=== PATIENT | female | born 1950 | race Caucasian/White ===

== ENCOUNTER 2017-06-15 00:34 | Inpatient (IN) | payer OTHER, MEDICAID ==
[2017-06-15] MEDS ORDERED: NS 1,000 ML IV ONE (00:37)
[2017-06-15] MEDS ORDERED: PANTOPRAZOLE SODIUM 40 MG in NS 100 ML IV ONE (00:38)
--- NOTE | 2017-06-15 00:41 | EDPHY ---
H & P HPI/ROS: HPI CHIEF COMPLAINT: Bleeding per rectum HISTORY OF PRESENT ILLNESS: This patient is 67-year-old female she presents to the emergency room with melenic stools times 24 hours. Patient states that she had lower abdominal pain earlier. She denies fever. Denies vomiting. Upon arrival to the emergency room she has dark tarry stool present. She is hemodynamically stable. She denies being on any blood thinners. Past Medical History: Hypertension, hyperlipidemia, non ST elevation NH, aspiration pneumonia, toxic supra cardiomyopathy, hypoxic respiratory failure Past Surgical History: No recent surgery Social History: Lives at [facility] denies illicit drugs alcohol tobacco. Family History: Noncontributory ROS REVIEW OF SYSTEMS: A comprehensive 10 point review of systems is otherwise negative aside from elements mentioned in the history of present illness. Exam Constitutional appears nontoxic, obese, triage nursing summary reviewed, vital signs reviewed, awake/alert. Vital signs noted to be tachycardic and hypotensive. Heart rate 126. Blood pressure 90 systolic. Dark melonic foul- smelling stool at bedside. Eyes normal conjunctivae and sclera, EOMI, PERRLA. HENT normal inspection, atraumatic, moist mucus membranes, no epistaxis, neck supple/ no meningismus, no raccoon eyes. Respiratory clear to auscultation bilaterally, normal breath sounds, no respiratory distress, no wheezing. Cardiovascular rate normal, regular rhythm, no murmur, no edema, distal pulses normal. Gastrointestinal soft, non-tender, no rebound, no guarding, normal bowel sounds, no distension, no pulsatile mass. Genitourinary no CVA tenderness. Musculoskeletal no midline vertebral tenderness, full range of motion, no calf swelling, no tenderness of extremities, no meningismus, good pulses, neurovascularly intact. Skin pink, warm, & dry, no rash, skin atraumatic. Neurologic awake, alert and oriented x 3, AAOx3, moves all 4 extremities equally, motor intact, sensory intact, CN II-XII intact, normal cerebellar, normal vision, normal speech. Psychiatric normal mood/affect. Heme/Lymph/Immune no lymphadenopathy. Differential Diagnosis: Includes but is not limited to acute GI bleed, upper GI bleed, melenic stools, blood loss anemia, upper GI bleed, lower GI bleed Medical Decision Making: Plan for this patient 2 large-bore IVs, type and screen, IV Protonix bolus, IV Protonix drip, check H&H level. Plan for admission for acute GI bleed. Re-evaluation: 0106: Patient noted be tachycardic in the 120s. Blood pressure 90 systolic. Lactic acid is elevated at 4.7 indicating shock. Patient has 2 large-bore IVs. She will be vigorously hydrated and resuscitated. H&H are reviewed 9.8. Will type and screen and crossmatch for blood. Will admit to the ICU. 0115Am: Dr. Bloom. Recommends NPO, PPI. Close monitor in the ICU. Call if worsening of condition. 0116AM: Spoke with Dr. Castorena agrees to admit this patient. Reason for admission GI bleed. 0116: Blood pressure was low when she arrived 90 systolic. Heart rate 120s. This is improved with IV fluids. Heart rate 98. Blood pressure up to 112 systolic. 0138AM: Vital signs are improved. GI aware. Hospitalist service admission. Patient and CT scan at at this time. Dr. Darren Gramajo to follow up CT scan. Still admit to ICU. Rule out Perforated Ulcer. Of note abdomen is soft there is no guarding or peritoneal signs. Critical Care: Total Critical Care Time Spent Managing this Patient: 65 Minutes. This time was spent Exclusively with this patient. This Care was exclusive of procedures. The Organ System/life at risk was Acute GIB This Patient was in Critical Condition because Gastro-intestinal bleed. Source: Patient, EMS - Medical/Surgical History Hx Asthma: No Hx Chronic Respiratory Disease: No Hx Diabetes: No Hx Cardiac Disease: No Hx Renal Disease: No Hx Cirrhosis: No Hx Alcoholism: No Hx HIV/AIDS: No Hx Splenectomy or Spleen Trauma: No Other PMH: Encephalopathy, UTIs, Schizoaffective disorder, bipolar, Depression, chronic pain, hyperlipidemia, hypothyroid, GERD, HTN, TIA, Cerebral infarction without residual deficeit., bilateral knee replacements. R knee post op infection. - Social History Smoking Status: Former smoker Constitutional: Initial Vital Signs Temperature (C) 36.7 C 06/15/17 00:35 Heart Rate 125 H 06/15/17 00:35 Respiratory Rate 18 06/15/17 00:35 Blood Pressure 97/71 L 06/15/17 00:35 O2 Sat (%) 97 06/15/17 00:35 O2 Delivery Mode Nasal Cannula O2 (L/minute) 3 Allergies/Adverse Reactions: morphine Allergy (Verified 06/15/17 00:54) Home Medications: Medication Instructions Recorded Acetaminophen [Tylenol 325mg (*)] 650 mg PO TID 11/21/15 Atorvastatin Calcium [Lipitor 40 40 mg PO HS 11/21/15 mg (*)] Benzocaine/Menthol 14/12 [Cepacol 1 each MM PRN PRN 11/21/15 Lozenge] Cholecalciferol Vit D3 [Vitamin D3 1,000 units PO DAILY 11/21/15 (*)] Clopidogrel Bisulfate [Plavix (*)] 75 mg PO DAILY 11/21/15 Diclofenac Sodium 1% [Voltaren Gel 1 gretta TP QID 11/21/15 (*)] Docusate Sodium [Colace 100 MG (*)] 100 mg PO BID 11/21/15 Magnesium Oxide [Magnesium Oxide 400 mg PO DAILY 11/21/15 400 mg (*)] Meclizine HCl [Meclizine HCl 25 mg 25 mg PO BID PRN 11/21/15 (RX,OTC)] PARoxetine HCL [Paxil 20mg (*)] 60 mg PO DAILY 11/21/15 Polyethylene Glycol 3350 [Miralax 17 gm PO DAILY PRN 11/21/15 17 gm (*)] Potassium Cl [Klor-Con 20 meq (*)] 40 meq PO DAILY 11/21/15 Sennosides [Senokot] 1 tab PO BID 11/21/15 Triamterene/Hctz 37.5/25 1 tab PO DAILY 11/21/15 [Maxzide-25 (*)] oxyCODONE IR [Oxycodone Ir (*)] 5 mg PO Q8 PRN 11/21/15 Albuterol [Proventil Neb] 3 ml IH Q4 PRN #0 deyvial 11/25/15 Aspirin [Aspirin 81mg (*)] 81 mg PO DAILY #0 tab 11/25/15 Ondansetron Odt [Zofran Odt 4 mg 4 mg PO Q4 PRN #0 tab 11/25/15 (*)] Calcium Carbonate [Oyster Shell 1,000 mg PO DAILY 06/15/17 Calcium 500 mg (*)] Cetirizine [ZyrTEC 10 mg (*)] 10 mg PO DAILY PRN 06/15/17 Chlorhexidine Gluconate [Hibiclens 15 ml TP BID 06/15/17 (*)] Divalproex [Depakote Sprinkle 125 125 mg PO BID 06/15/17 MG (*)] Fluticasone/Vilanterol [Breo 1 each IH DAILY 06/15/17 Ellipta 100-25 Mcg INH] Hydrocodone/Acetaminophen [[place] 1 each PO Q6 PRN 06/15/17 5/325 (*)] Levothyroxine [Synthroid 112 mcg 112 mcg PO DAILY06 06/15/17 (*)] Pantoprazole Sodium [Protonix] 20 mg PO DAILY 06/15/17 Medical Decision Making - Data Points Laboratory Results: Laboratory Results 06/15/17 00:45 06/15/17 00:45 Medications Given: Acetaminophen (Tylenol) 650 mg PO Q4HRS PRN PRN Reason: Pain, Mild Stop: 12/14/17 09:16 Last Admin: 06/17/17 17:51 Dose: 650 mg Atorvastatin Calcium (Lipitor) 40 mg PO HS KIM Stop: 12/12/17 20:59 Last Admin: 06/17/17 20:21 Dose: 40 mg Calcium Carbonate (Oyster Shell Calcium) 1,000 mg PO DAILY KIM Stop: 12/13/17 08:59 Last Admin: 06/17/17 09:14 Dose: 1,000 mg Chlorhexidine Gluconate (Hibiclens) 0.1271 btl TP BID KIM Stop: 07/15/17 20:59 Last Admin: 06/17/17 19:50 Dose: Not Given Cholecalciferol (Vitamin D) 1,000 units PO DAILY KIM Stop: 12/13/17 08:59 Last Admin: 06/17/17 09:14 Dose: 1,000 units Clopidogrel Bisulfate (Plavix) 75 mg PO DAILY KIM Stop: 12/14/17 11:14 Last Admin: 06/17/17 15:43 Dose: 75 mg Divalproex Sodium (Depakote Sprinkle) 125 mg PO BID KIM Stop: 12/12/17 11:14 Last Admin: 06/17/17 20:21 Dose: 125 mg Hydromorphone HCl (Dilaudid) 0.2 mg IVP Q8H PRN PRN Reason: Pain, Severe Unable to Take PO Stop: 06/26/17 10:18 Last Admin: 06/16/17 10:27 Dose: 0.2 mg Pantoprazole Sodium 40 mg/ (Sodium Chloride) 100 mls @ 200 mls/hr IV BID KIM Stop: 12/12/17 08:59 Last Admin: 06/17/17 20:20 Dose: 100 mls Potassium Chloride/Sodium Chloride (Ns W/ 20 Kcl/L) 1,000 mls @ 75 mls/hr IV CONT KIM Stop: 12/12/17 16:59 Last Admin: 06/17/17 20:21 Dose: 1,000 mls Potassium Chloride (Potassium Cl 20 Meq (Premix)) 100 mls @ 50 mls/hr IV Q2H KIM Stop: 06/17/17 23:59 Last Admin: 06/17/17 21:57 Dose: 100 mls Levothyroxine Sodium (Synthroid) 112 mcg PO DAILY06 [facility] Stop: 12/12/17 11:14 Last Admin: 06/17/17 05:11 Dose: 112 mcg Miscellaneous Medication (Fluticasone/Vilanterol [Breo Ellipta 100-25 Mcg Inh]) 1 each IH DAILY KIM Stop: 12/13/17 08:59 Last Admin: 06/17/17 08:22 Dose: Not Given Oxycodone HCl (Oxycodone Ir) 5 mg PO Q8 PRN PRN Reason: Pain, Severe Able to Take PO Stop: 06/25/17 11:07 Last Admin: 06/17/17 15:41 Dose: 5 mg Paroxetine HCl (Paxil) 60 mg PO DAILY KIM Stop: 12/12/17 11:14 Last Admin: 06/17/17 09:14 Dose: 60 mg Discontinued Medications Sodium Chloride (Ns) 1,000 mls @ 0 mls/hr IV EDNOW ONE; Wide Open PRN Reason: Protocol Stop: 06/15/17 00:38 Last Admin: 06/15/17 01:00 Dose: 1,000 mls Pantoprazole Sodium 40 mg/ (Sodium Chloride) 100 mls @ 200 mls/hr IV ONCE ONE Stop: 06/15/17 01:07 Last Admin: 06/15/17 01:25 Dose: 100 mls Pantoprazole Sodium 80 mg/ (Sodium Chloride) 100 mls @ 10 mls/hr IV EDNOW ONE Stop: 06/15/17 11:14 Last Admin: 06/15/17 02:48 Dose: 100 mls Sodium Chloride (Ns) 1,000 mls @ 150 mls/hr IV CONT KIM Stop: 12/12/17 01:59 Last Admin: 06/15/17 11:04 Dose: 1,000 mls Potassium Chloride (Potassium Cl 10 Meq (Premix)) 100 mls @ 100 mls/hr IV Q1H KIM Stop: 06/15/17 09:29 Last Admin: 06/15/17 11:01 Dose: 100 mls Potassium Chloride (Potassium Cl 10 Meq (Premix)) 100 mls @ 100 mls/hr IV Q1H KIM Stop: 06/15/17 19:22 Last Admin: 06/15/17 19:01 Dose: 100 mls Potassium Chloride (Potassium Cl 10 Meq (Premix)) 100 mls @ 100 mls/hr IV Q1H KIM Stop: 06/16/17 11:14 Last Admin: 06/16/17 14:41 Dose: Not Given Potassium Chloride (Potassium Cl 10 Meq (Premix)) 100 mls @ 100 mls/hr IV ONCE ONE Stop: 06/16/17 15:44 Last Admin: 06/16/17 14:41 Dose: 100 mls Influenza Virus Vaccine Quadrival (Fluarix Quad [id number]) 0.5 ml IM .ONCE ONE Stop: 06/15/17 12:12 Last Admin: 06/15/17 14:58 Dose: 0.5 ml Polyethylene Glycol/Electrolytes (Gavilyte - G) 4,000 ml PO ONCE ONE Stop: 06/15/17 09:08 Last Admin: 06/15/17 16:12 Dose: 4,000 ml Potassium Chloride (Klor-Con) 10 - 40 meq PO ONCE ONE PRN Reason: Protocol Stop: 06/17/17 09:23 Last Admin: 06/17/17 11:14 Dose: 20 meq Departure - Departure Disposition: [facility] Inpatient Acute Clinical Impression: Gastrointestinal bleed Qualifiers: GI bleed type/associated pathology: unspecified gastrointestinal hemorrhage type Qualified Code(s): K92.2 - Gastrointestinal hemorrhage, unspecified Condition: Critical
[2017-06-15] MEDS ORDERED: PANTOPRAZOLE SODIUM 80 MG in NS 100 ML IV SCH (00:45)
--- NOTE | 2017-06-15 01:02 | CPEKG ---
Heart Rate: 118 RR Interval: 508 P-R Interval: 164 QRSD Interval: 82 QT Interval: 340 QTC Interval: 477 P [place]: 60 QRS [place]: -48 T Wave [place]: 132 EKG Severity - ABNORMAL ECG - EKG Impression: SINUS TACHYCARDIA EKG Impression: LAD, CONSIDER LEFT ANTERIOR FASCICULAR BLOCK EKG Impression: PROBABLE LVH WITH SECONDARY REPOL ABNRM EKG Impression: CONSIDER ANTERIOR INFARCT Electronically Signed By: Bay Chery 20-Jun-2017 11:58:02
[2017-06-15 01:03] LABS: % IMMATURE GRANULYOCYTES 0.3 % (0.0-1.1); ABSOLUTE IMMATURE GRANULOCYTES 0.04 10^3/uL (0.00-0.10); ADD DIFF? NO; ADD MORPH? NO; ADD SCAN? NO; ATYPICAL LYMPHOCYTE FLAG 0 (0-99); FRAGMENT RBC FLAG 0 (0-99); HEMOGLOBIN 9.8 g/dL (12.6-16.3); LEFT SHIFT FLG 0 (0-99); LIPEMIA HEMOLYSIS FLAG 80 (0-99); MEAN CELL HEMOGLOBIN 30.5 pg (27.9-34.1); MEAN CELL HEMOGLOBIN CONCENTR. 32.7 g/dL (32.4-36.7); MEAN CELL VOLUME 93.5 fL (81.5-99.8); MEAN PLATELET VOLUME 10.4 fL (8.7-11.7); PLATELET CLUMPS FLAG 0 (0-99); PLATELET COUNT 319 10^3/uL (150-400); RED BLOOD CELL COUNT 3.21 10^6/uL (4.18-5.33); RED CELL DISTRIBUTION WIDTH 12.8 % (11.5-15.2)
[2017-06-15 01:10] LABS: INR 1.11 (0.83-1.16); PROTIME(PATIENT) 14.2 SEC (12.0-15.0)
[2017-06-15 01:11] LABS: APTT 23.4 SEC (23.0-38.0)
[2017-06-15 01:12] LABS: ALANINE AMINOTRANSFERASE 33 IU/L (9-52); ALBUMIN 3.1 g/dL (3.5-5.0); ALKALINE PHOSPHATASE 58 IU/L (38-126); ANION GAP 13 mEq/L (8-16); ASPARTATE AMINOTRANSFERASE 16 IU/L (14-46); BILIRUBIN,TOTAL 0.3 mg/dL (0.1-1.4); BILIRUBIN-CONJUGATED 0.3 mg/dL (0.0-0.5); CARBON DIOXIDE 23 mEq/l (22-31); CHLORIDE 106 mEq/L (97-110); CREATININE 0.7 mg/dL (0.6-1.0); GLOMERULAR FILTRATION RATE > 60; GLUCOSE 181 mg/dL (70-100); POTASSIUM 3.9 mEq/L (3.5-5.2); SODIUM 142 mEq/L (134-144); TOTAL PROTEIN 5.8 g/dL (6.3-8.2)
[2017-06-15] MEDS ORDERED: PANTOPRAZOLE SODIUM 80 MG in NS 100 ML IV ONE (01:15)
[2017-06-15] MEDS ORDERED: IOPAMIDOL (ISOVUE-300) 100 ML BTL ONE (01:24)
--- NOTE | 2017-06-15 01:36 | PDGENHP ---
History and Physical - Chief Complaint Melena - History of Present Illness 67 yo F w/ hx of CAD, HTN, and CVA presents with melena. Patient sent from [facility], where she lives due to disability from a CVA, with one day of melanic stools. She also experienced some mild lower abdominal pain. Of note, she is on DAPT as an outpatient but not on therapeutic anticoagulation. In the ED she was tachycardic on arrival with SBP in the 90s and significant melena. Her BP and heart rate improved with IVF. History Information - Allergies/Home Medication List Allergies/Adverse Reactions: morphine Allergy (Verified 06/15/17 00:54) Home Medications: ARIPiprazole [Abilify 2 mg (*)] 2 mg PO BID 11/21/15 [Last Taken 11/21/15 09:00] Acetaminophen [Tylenol 325mg (*)] 650 mg PO TID 11/21/15 [Last Taken 11/21/15 09 :00] Atorvastatin Calcium [Lipitor 40 mg (*)] 80 mg PO HS 11/21/15 [Last Taken ] Benzocaine/Menthol 15/ [Cepacol Lozenge] 1 each MM PRN PRN 11/21/15 [Last Taken Unknown] Calcium Carbonate 1,200 mg PO DAILY 11/21/15 [Last Taken 11/21/15 09:00] Cholecalciferol Vit D3 [Vitamin D3 (*)] 1,000 units PO DAILY 11/21/15 [Last Taken 11/21/15 09:00] Clopidogrel Bisulfate [Plavix (*)] 75 mg PO DAILY 11/21/15 [Last Taken 11/21/15 09:00] Diclofenac Sodium 1% [Voltaren Gel (*)] 1 gretta TP QID 11/21/15 [Last Taken 12:00] Docusate Sodium [Colace 100 MG (*)] 100 mg PO BID 11/21/15 [Last Taken 11/21/15 09:00] Levothyroxine [Synthroid 100 mcg (*)] 100 mcg PO DAILY06 11/21/15 [Last Taken 09:00] Magnesium Oxide [Magnesium Oxide 400 mg (*)] 400 mg PO DAILY 11/21/15 [Last Taken 11/21/15 09:00] Meclizine HCl [Meclizine HCl 25 mg (RX,OTC)] 25 mg PO BID PRN 11/21/15 [Last Taken Unknown] Memantine HCl [Namenda 10 mg] 10 mg PO DAILY 11/21/15 [Last Taken 11/21/15 09:00 ] Ondansetron Odt [Zofran Odt 4 mg (*)] 4 mg PO Q6 PRN 11/21/15 [Last Taken Unknown] PARoxetine HCL [Paxil 20mg (*)] 60 mg PO DAILY 11/21/15 [Last Taken 11/21/15 09: 00] Polyethylene Glycol 3350 [Miralax 17 gm (*)] 17 gm PO BID 11/21/15 [Last Taken 11/21/15 09:00] Potassium Cl [Klor-Con 20 meq (*)] 40 meq PO DAILY 11/21/15 [Last Taken 09:00] Ranitidine HCl [Zantac] 150 mg PO BID 11/21/15 [Last Taken 11/21/15 09:00] Sennosides [Senokot] 1 tab PO BID 11/21/15 [Last Taken 11/21/15 09:00] Triamterene/Hctz 37.5/25 [Maxzide-25 (*)] 1 tab PO DAILY 11/21/15 [Last Taken 09:00] Valproic Acid [Depakene 250MG (*)] 250 mg PO BID 11/21/15 [Last Taken 11/21/15 09:00] oxyCODONE IR [Oxycodone Ir (*)] 5 mg PO Q12 PRN 11/21/15 [Last Taken Unknown] I have personally reviewed and updated: family history, medical history - Past Medical History coronary artery disease, CVA, hypertension - Family History Positive for: cancer - Social History Smoking Status: Former smoker Additional social history: Lives at [facility] due to disability from CVA Review of Systems Review of Systems: ROS: 10pt was reviewed & negative except for what was stated in HPI & below Physical Exam Physical Exam: Temp Pulse Resp BP Pulse Ox 36.7 C 98 14 112/72 95 06/15/17 00:35 06/15/17 01:09 06/15/17 01:09 06/15/17 01:09 06/15/17 01:09 Constitutional: no apparent distress, appears nourished Eyes: PERRL, anicteric sclera Ears, Nose, Mouth, Throat: moist mucous membranes, no oral mucosal ulcers Cardiovascular: regular rate and rhythym, no murmur, rub, or gallop Respiratory: no respiratory distress, no rales or rhonchi Gastrointestinal: normoactive bowel sounds, soft, non-tender abdomen Skin: warm, normal color Musculoskeletal: other (Leg weakness L>R.), No full muscle strength (Mild left facial, LUE weakness) Neurologic: AAOx3, weakness Psychiatric: interacting appropriately, not anxious Lab Data & Imaging Review 06/15/17 00:45 06/15/17 00:45 WBC 11.73 10^3/uL (3.80-9.50) H 06/15/17 00:45 RBC 3.21 10^6/uL (4.18-5.33) L 06/15/17 00:45 Hgb 9.8 g/dL (12.6-16.3) L 06/15/17 00:45 Hct 30.0 % (38.0-47.0) L 06/15/17 00:45 MCV 93.5 fL (81.5-99.8) 06/15/17 00:45 MCH 30.5 pg (27.9-34.1) 06/15/17 00:45 MCHC 32.7 g/dL (32.4-36.7) 06/15/17 00:45 RDW 12.8 % (11.5-15.2) 06/15/17 00:45 Plt Count 319 10^3/uL (150-400) 06/15/17 00:45 MPV 10.4 fL (8.7-11.7) 06/15/17 00:45 Neut % (Auto) 70.4 % (39.3-74.2) 06/15/17 00:45 Lymph % (Auto) 23.4 % (15.0-45.0) 06/15/17 00:45 [place] % (Auto) 5.3 % (4.5-13.0) 06/15/17 00:45 Eos % (Auto) 0.3 % (0.6-7.6) L 06/15/17 00:45 Baso % (Auto) 0.3 % (0.3-1.7) 06/15/17 00:45 Nucleat RBC Rel Count 0.0 % (0.0-0.2) 06/15/17 00:45 Absolute Neuts (auto) 8.25 10^3/uL (1.70-6.50) H 06/15/17 00:45 Absolute Lymphs (auto) 2.75 10^3/uL (1.00-3.00) 06/15/17 00:45 Absolute Monos (auto) 0.62 10^3/uL (0.30-0.80) 06/15/17 00:45 Absolute Eos (auto) 0.03 10^3/uL (0.03-0.40) 06/15/17 00:45 Absolute Basos (auto) 0.04 10^3/uL (0.02-0.10) 06/15/17 00:45 Absolute Nucleated RBC 0.00 10^3/uL (0-0.01) 06/15/17 00:45 Immature Gran % 0.3 % (0.0-1.1) 06/15/17 00:45 Immature Gran # 0.04 10^3/uL (0.00-0.10) 06/15/17 00:45 PT 14.2 SEC (12.0-15.0) 06/15/17 00:45 INR 1.11 (0.83-1.16) 06/15/17 00:45 APTT 23.4 SEC (23.0-38.0) 06/15/17 00:45 VBG Lactic Acid 4.7 mmol/L (0.7-2.1) H 06/15/17 00:45 Sodium 142 mEq/L (134-144) 06/15/17 00:45 Potassium 3.9 mEq/L (3.5-5.2) 06/15/17 00:45 Chloride 106 mEq/L (97-110) 06/15/17 00:45 Carbon Dioxide 23 mEq/l (22-31) 06/15/17 00:45 Anion Gap 13 mEq/L (8-16) 06/15/17 00:45 BUN 55 mg/dL (7-23) H 06/15/17 00:45 Creatinine 0.7 mg/dL (0.6-1.0) 06/15/17 00:45 Estimated GFR > 60 06/15/17 00:45 Glucose 181 mg/dL (70-100) H 06/15/17 00:45 Calcium 9.0 mg/dL (8.5-10.4) 06/15/17 00:45 Total Bilirubin 0.3 mg/dL (0.1-1.4) 06/15/17 00:45 Conjugated Bilirubin 0.3 mg/dL (0.0-0.5) 06/15/17 00:45 Unconjugated Bilirubin 0.0 mg/dL (0.0-1.1) 06/15/17 00:45 AST 16 IU/L (14-46) 06/15/17 00:45 ALT 33 IU/L (9-52) 06/15/17 00:45 Alkaline Phosphatase 58 IU/L (38-126) 06/15/17 00:45 Total Protein 5.8 g/dL (6.3-8.2) L 06/15/17 00:45 Albumin 3.1 g/dL (3.5-5.0) L 06/15/17 00:45 Lipase 204 IU/L (23-300) 06/15/17 00:45 Assessment & Plan Assessment: 67 yo F w/ hx of CVA, CAD, and HTN presents with likely UGIB. Plan: 1. GIB - Suspect upper GI source noting melena; on DAPT as outpatient. Tachycardic and low/normal BP on arrival, improved with IVF. H/H 9.8/30 on admission with elevated BUN. [place] score of at least 6, denoting intermediate mortality risk. - GI consulted, will see in the morning - CT abdomen for further evaluation - Maintain NPO, 2 large bore IV access - Admit to ICU for close monitoring - PPI IV BID - Type and screen, monitor CBC 2. Hx CVA - On DAPT and statin as an outpatient. Significant disability related to this, lives at SNF as a result. Will hold DAPT. 3. HX CAD - With NSTEMI during last admission; decision not to intervene due to low exertional baseline and lack of likely benefit. On DAPT and statin as an outpatient. Will hold DAPT 4. HTN - On triamterene/HCTZ, will hold in setting of above. 5. Hypothyroid - On LTX as an outpatient Diet - NPO Code - Full Ppx - SCDs, PPI IV Dispo - Admit to ICU under inpatient status noting need for close monitoring and GI intervention. I personally spent 60 minutes of critical care time evaluating patient, interpreting results, and coordinating care.
[2017-06-15] MEDS: NS 1,000 ML IV SCH ×2 (02:49→11:04)
[2017-06-15 04:32] LABS: % IMMATURE GRANULYOCYTES 0.3 % (0.0-1.1); ABSOLUTE IMMATURE GRANULOCYTES 0.03 10^3/uL (0.00-0.10); ADD DIFF? NO; ADD MORPH? NO; ADD SCAN? NO; ATYPICAL LYMPHOCYTE FLAG 0 (0-99); FRAGMENT RBC FLAG 0 (0-99); HEMATOCRIT 23.5 % (38.0-47.0); HEMOGLOBIN 7.7 g/dL (12.6-16.3); LEFT SHIFT FLG 0 (0-99); LIPEMIA HEMOLYSIS FLAG 80 (0-99); MEAN CELL HEMOGLOBIN CONCENTR. 32.8 g/dL (32.4-36.7); MEAN CELL VOLUME 94.8 fL (81.5-99.8); MEAN PLATELET VOLUME 10.5 fL (8.7-11.7); PLATELET CLUMPS FLAG 10 (0-99); PLATELET COUNT 190 10^3/uL (150-400); RED BLOOD CELL COUNT 2.48 10^6/uL (4.18-5.33); RED CELL DISTRIBUTION WIDTH 12.9 % (11.5-15.2)
[2017-06-15 04:43] LABS: ANION GAP 9 mEq/L (8-16); CALCIUM 7.6 mg/dL (8.5-10.4); CARBON DIOXIDE 23 mEq/l (22-31); CHLORIDE 110 mEq/L (97-110); CREATININE 0.6 mg/dL (0.6-1.0); GLOMERULAR FILTRATION RATE > 60; GLUCOSE 121 mg/dL (70-100); POTASSIUM 3.4 mEq/L (3.5-5.2); SODIUM 142 mEq/L (134-144)
[2017-06-15] MEDS ORDERED: PROTOCOL POTASSIUM 1 DOSE MISC PRN (06:04)
[2017-06-15] MEDS: POTASSIUM Cl (KCl) 100 ML IV SCH ×6 (06:44→19:01)
[2017-06-15 07:50] LABS: HEMOGLOBIN 7.6 g/dL (12.6-16.3)
--- NOTE | 2017-06-15 08:34 | PDANEPAE ---
ANE History of Present Illness GI bleed with melena ANE Past Medical History - Cardiovascular History Hx Hypertension: Yes Hx Coronary Artery / Peripheral Vascular Disease: Yes Cardiovascular History Comment: non STEMI/CVA - Pulmonary History Hx Oxygen in Use at Home: Yes O2 in Use at Home (L/minute): 2 Hx Sleep Apnea: No Pulmonary History Comment: currently 100% on 2L - Neurologic History Hx Cerebrovascular Accident: Yes - Endocrine History Hx Diabetes: No ANE Review of Systems Review of Systems: - Exercise capacity Exercise capacity: <4 METS ANE Patient History - Allergies Allergies/Adverse Reactions: morphine Allergy (Verified 06/15/17 00:54) - Home Medications Home medications: home medication list seen and reviewed Home Medications: ARIPiprazole [Abilify 2 mg (*)] 2 mg PO BID 11/21/15 [Last Taken 11/21/15 09:00] Acetaminophen [Tylenol 325mg (*)] 650 mg PO TID 11/21/15 [Last Taken 11/21/15 09 :00] Atorvastatin Calcium [Lipitor 40 mg (*)] 80 mg PO HS 11/21/15 [Last Taken ] Benzocaine/Menthol 14/12 [Cepacol Lozenge] 1 each MM PRN PRN 11/21/15 [Last Taken Unknown] Calcium Carbonate 1,200 mg PO DAILY 11/21/15 [Last Taken 11/21/15 09:00] Cholecalciferol Vit D3 [Vitamin D3 (*)] 1,000 units PO DAILY 11/21/15 [Last Taken 11/21/15 09:00] Clopidogrel Bisulfate [Plavix (*)] 75 mg PO DAILY 11/21/15 [Last Taken 11/21/15 09:00] Diclofenac Sodium 1% [Voltaren Gel (*)] 1 gretta TP QID 11/21/15 [Last Taken 12:00] Docusate Sodium [Colace 100 MG (*)] 100 mg PO BID 11/21/15 [Last Taken 11/21/15 09:00] Levothyroxine [Synthroid 100 mcg (*)] 100 mcg PO DAILY06 11/21/15 [Last Taken 09:00] Magnesium Oxide [Magnesium Oxide 400 mg (*)] 400 mg PO DAILY 11/21/15 [Last Taken 11/21/15 09:00] Meclizine HCl [Meclizine HCl 25 mg (RX,OTC)] 25 mg PO BID PRN 11/21/15 [Last Taken Unknown] Memantine HCl [Namenda 10 mg] 10 mg PO DAILY 11/21/15 [Last Taken 11/21/15 09:00 ] Ondansetron Odt [Zofran Odt 4 mg (*)] 4 mg PO Q6 PRN 11/21/15 [Last Taken Unknown] PARoxetine HCL [Paxil 20mg (*)] 60 mg PO DAILY 11/21/15 [Last Taken 11/21/15 09: 00] Polyethylene Glycol 3350 [Miralax 17 gm (*)] 17 gm PO BID 11/21/15 [Last Taken 11/21/15 09:00] Potassium Cl [Klor-Con 20 meq (*)] 40 meq PO DAILY 11/21/15 [Last Taken 09:00] Ranitidine HCl [Zantac] 150 mg PO BID 11/21/15 [Last Taken 11/21/15 09:00] Sennosides [Senokot] 1 tab PO BID 11/21/15 [Last Taken 11/21/15 09:00] Triamterene/Hctz 37.5/25 [Maxzide-25 (*)] 1 tab PO DAILY 11/21/15 [Last Taken 09:00] Valproic Acid [Depakene 250MG (*)] 250 mg PO BID 11/21/15 [Last Taken 11/21/15 09:00] oxyCODONE IR [Oxycodone Ir (*)] 5 mg PO Q12 PRN 11/21/15 [Last Taken Unknown] - NPO status NPO Status: no food or drink >8 hours - Anes Hx Anes Hx: no prior problems - Smoking Hx Smoking Status: Former smoker - Alcohol Use Alcohol Use: None - Family Anes Hx Family Anes Hx: none ANE Labs/Vital Signs - Labs Result Diagrams: 06/15/17 07:35 06/15/17 04:20 - Vital Signs Blood Pressure: 111/67 Heart Rate: 97 Respiratory Rate: 15 O2 Sat (%): 100 Height: 162.56 cm Weight: 96.162 kg ANE Physical Exam - Airway Neck exam: decreased ROM Mallampati Score: Class 3 Mouth exam: poor dentition - Pulmonary Pulmonary: no respiratory distress - Cardiovascular Cardiovascular: regular rate and rhythym, tachycardia - ASA Status ASA Status: IV, E ANE Anesthesia Plan Anesthesia Plan: general endotracheal anesthesia, GA with mask (Plan is IV Propofol vs GA with ETT as the patient tolerates) Total IV Anesthesia: Yes
[2017-06-15] MEDS ORDERED: LIDOCAINE 2% 100 MG/5 ML SYR ONE (08:39)
[2017-06-15] MEDS ORDERED: PROPOFOL/EMULSION 500 MG/50 ML BOTTLE IV ONE (08:39)
--- NOTE | 2017-06-15 09:03 | PDMN ---
Medical Necessity Medical necessity: Patient meets INPT criteria per physician note: suspected UGIB, presents w/ mild lower abd pain, initial tachycardia, melena x 1 day; hx of CAD/STEMI, HTN, CVA; H&H 9.8 -> 7.6/; awaiting GI consult; anticipated LOS > 2 midnights for IV PPI, serial CBCs, ICU monitoring, NPO w/IV hydration.)
[2017-06-15] MEDS ORDERED: PEG 3350/NA SULF,BICARB,CL/KCL (GAVILYTE-G) 4000 ML BTL PO ONE (09:07)
--- NOTE | 2017-06-15 09:07 | SUROPNOTE ---
[facility] Operative Report - Surgery BRIEF EGD NOTE (full note to follow) INDICATION: melena, anemia MEDS: per anesthesia COMPLICATIONS: none acutely FINDINGS: 1. normal esophagus 2. s/p Rodriguez-En-Y 3. normal gastric pouch 4. normal small bowel 5. healthy appearing gastro-J anastomosis IMPRESSION/RECS: 1. GI BLEED - no upper GI source noted. - Rodriguez-En-Y anatomy noted. - will prep for colonoscopy to occur on 06/16/17 - clear liquid diet today, npo Anusha Dean starting this afternoon - will follow - ok to change IV PPI to PO PPI meanwhile - will follow, call with questions
[2017-06-15] MEDS ORDERED: fentaNYL 100 MCG/2 ML INJ IVP PRN (09:15)
[2017-06-15] MEDS ORDERED: NALOXONE HCL 0.4 MG/ML INJ IVP PRN (09:15)
[2017-06-15] MEDS ORDERED: DEXAMETHASONE 4 MG/ML VIAL IVP PRN (09:15)
[2017-06-15] MEDS ORDERED: ALBUTEROL 3 ML DEYVIAL IH PRN ×2 (09:15→11:08)
[2017-06-15] MEDS ORDERED: LR 500 ML IV PRN (09:15)
[2017-06-15] MEDS ORDERED: ONDANSETRON 4 MG/2 ML VIAL IVP PRN (09:15)
--- NOTE | 2017-06-15 09:15 | POSTANESTH ---
Post Anesthetic Evaluation Cardiovascular Status: Normal, Stable Respiratory Status: Normal, Stable Level of Consciousness/Mental Status: Can Participate in Eval, Mildly Sleepy, Arousable Pain Control: Adequate, Prn Tx Ordered Nausea/Vomiting Control: Adequate, Prn Tx Ordered Complications Possibly Related to Anesthesia: None Noted (tolerated well without difficulty)
--- NOTE | 2017-06-15 09:15 | GIREPORT ---
Formerly [facility] Surgical Services - Endoscopy Department Patient Name: Sobia Green Procedure Date: 06/15/2017 8:27 AM Patient Type: Inpatient Attending MD/ ER Physician: Magda Bloom MD Procedure: Upper GI endoscopy Indications: Acute post hemorrhagic anemia, Hematochezia, Melena Providers: Magda Bloom MD Medicines: Sedation Administered by an Anesthesia Professional Complications: No immediate complications. Description of Procedure: After obtaining informed consent, the endoscope was passed under direct vision. Throughout the procedure, the patient's blood pressure, pulse, and oxygen saturations were monitored continuous ly. The Endoscope was introduced through the mouth, and advanced to the fourth part of duodenum. The upper GI endoscopy was accomplished without difficulty. The patient tolerated the procedure well . Findings: The examined esophagus was normal. 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 The gastrojejunal anastomosis was character ized by healthy appearing mucosa. This was traversed. The exdvz-nr-cteqqmg limb was characterized by healthy appearing mucosa. The jejunojejunal anastomosis was characterized by healthy appearing mucosa. The mgmpbhfk-ws-mpccucc limb was not examined as it could not be found. Estimated Blood Loss: Estimated blood loss: none. Post Op Diagnosis: - Normal esophagus. - Rodriguez-en-Y gastrojejunostomy with gastrojejunal anastomosis characteri zed by healthy appearing mucosa. - No specimens collected. Recommendation: - [facility]. - Perform a colonoscopy tomorrow. Attending Participation: I personally performed the entire procedure. ,Electronically Sigened by Magda Bloom MD> Magda Bloom MD 06/15/2017 9:14:31 AM Number of Addenda: 0 Note Initiated On: 06/15/2017 8:27 AM [email or web address]
[2017-06-15] MEDS: PANTOPRAZOLE SODIUM 40 MG in NS 100 ML IV SCH ×2 (09:26→21:32)
--- NOTE | 2017-06-15 09:27 | HOSPPROG ---
Hospitalist Progress Note Assessment/Plan: #Acute GIB: while on dual anti-platelet -EGD with with normal esophagus. Rodriguez-Y- gastrojejunostomy muscosa normal -reviewed CT: possible colitis? -colonoscopy in morning -transfuse 1 unit today; watch closely with EF 25%. Give Lasix if needs additional unit #Compensated systolic HF/h/o takasubo: (EF 25% 2016). Hold diuretic with GIB #HTN: hold anti-hypertensives with GIB #Hypothyroidism: LT4 #CVA: hold ASA/Plavix. Cont statin. Wheel-chair bound. Restart antiplatelets when stable from GIB #CAD: NSTEMI in 2016. Determined for medical management then as stenting would not improve quality of life. Hold ASA, Plavix. Cont statin #Chronic hypoxemic resp failure: at baseline 2 L #Hypokalemia: repleting #Diet: clears, NPO at MN # Subjective: c/o urinary frequency. No dizziness or chest pain. Having melena today Objective: Vital Signs Temp Pulse Resp BP Pulse Ox 37 C 97 15 111/67 100 06/15/17 02:40 06/15/17 08:34 06/15/17 08:34 06/15/17 08:34 06/15/17 08:34 Laboratory Results 06/15/17 07:35 06/15/17 04:20 06/14/17 06/15/17 06/16/17 05:59 05:59 05:59 Intake Total 2580 Output Total 3 Balance 2577 PT 14.2 SEC (12.0-15.0) 06/15/17 00:45 INR 1.11 (0.83-1.16) 06/15/17 00:45 - Physical Exam Constitutional: chronically ill appearing, other (pale) Eyes: pale conjunctiva Ears, Nose, Mouth, Throat: moist mucous membranes Cardiovascular: regular rate and rhythym, no murmur, rub, or gallop Respiratory: no respiratory distress, no rales or rhonchi Gastrointestinal: normoactive bowel sounds, soft, non-tender abdomen, No no palpable masses, No distension Genitourinary: no bladder fullness Skin: warm Musculoskeletal: generalized weakness Neurologic: AAOx3, CN II-XII Intact Psychiatric: interacting appropriately, flat affect ICD10 Worksheet Patient Problems: Problems Problem Status Onset Gastrointestinal bleed Acute Aspiration pneumonia Acute
[2017-06-15] MEDS ORDERED: CETIRIZINE 10 MG TAB PO PRN (11:08)
[2017-06-15] MEDS ORDERED: MECLIZINE HCL 25 MG TAB PO PRN (11:08)
--- NOTE | 2017-06-15 11:18 | GCON ---
[f rep st] CONSULTATION INPATIENT CONSULTATION REFERRING PHYSICIAN: Jimmie Castorena MD REASON FOR CONSULTATION: Melena and anemia. CHIEF COMPLAINT: Fatigue. HISTORY OF PRESENT ILLNESS: Briefly, the patient is a 67-year-old female with a past medical history significant for stroke, heart disease, and hypertension, who was admitted to the hospital with bleed ing. She reports that she has had approximately 2 days of difficulty with bowel movements. This has been associated with some rectal bleeding. She cannot identify the color or consistency of her stoo l, but reports that it was bloody. She believes she was having some constipation, requested addition al laxatives. As the bleeding was continuing, and she started to feel unwell with some mild nausea a nd fatigue, she was transferred to the hospital from her retirement for evaluation. Upon arrival, it was noted that she had a melena stool, she had hypotension, and tachycardia. She was therefore ad mitted for concern for GI bleeding. She reports no prior history of GI bleeding. She does admit to having esophageal reflux, indigestion , and heartburn for which she was once using proton pump inhibitor therapies. Currently she is using Zantac. Of note, she is on multiple antiplatelet and anticoagulation therapies, given her cardiovascular and stroke risk. She is not, however, therapeutic with regard to her Coumadin use. She does not report taking nonsteroidal anti-inflammatory therapies, apart from a diclofenac gel. With fluid resuscitation in the emergency room, she had improvement in her blood pressure and heart r ate. ALLERGIES: Morphine. HOME MEDICATIONS: Abilify, Tylenol, Lipitor, vitamin D, Plavix, Voltaren, Colace, Synthroid, magnesi um, meclizine, Namenda, Zofran, Paxil, MiraLAX, Klor-Con, Zantac, Senokot, Maxzide, Depakene, and oxy codone. Her charting reports that she has been on dual antiplatelet therapy. PAST MEDICAL HISTORY: Includes coronary artery disease, stroke, and hypertension. FAMILY HISTORY: She reports family members with cancer, but cannot identify the types. SOCIAL HISTORY: She is a former smoker. She lives at [facility] due to the disabilities related to her stroke. REVIEW OF SYSTEMS: A complete 10-system review was undertaken with the patient and the pertinent pos itives and negatives are detailed in the History of Present Illness. PHYSICAL EXAM: GENERAL: This is a well-developed female, in no apparent distress. HEENT: Her pupi ls are equal, round, reactive to light and accommodation. Her sclerae are nonicteric. Her oropharyn x is clear. Her mucous membranes are moist. CARDIOVASCULAR: Reveals normal rate and rhythm. RESPI RATORY: Reveals no distress, rales, rhonchi, crackles, she has good air movement. GASTROINTESTINAL: Reveals normoactive bowel sounds with a nontender abdomen. SKIN: Reveals warm skin, normal color without bruising. MUSCULOSKELETAL: She has some left greater than right weakness. Otherwise, her e xam is normal. NEUROLOGIC: She is alert and oriented x3. She is able to comply with questioning. Although has some delay with response, her responses are appropriate. PSYCHIATRIC: Reveals normal m ood and affect. JOINT: Exam reveals no arthritis. LABORATORY DATA: Laboratory testing shows hemoglobin of 9.8, hematocrit of 30. BUN of 55, creatinin e of 0.7. Lipase of 204. Liver function tests were normal. IMPRESSION/RECOMMENDATIONS: This is a 67-year-old female with a past medical history significant for coronary disease, stroke, and hypertension, who was admitted to the hospital with probable upper gas trointestinal bleeding. I suspect upper gastrointestinal bleeding based on the melena nature of her stools, her dual antiplatelet therapy, and her elevated BUN over creatinine ratio. She should remain n.p.o., on proton pump inhibitor. We will plan upper endoscopy to resolve the differential diagnosi s of upper intestinal bleeding. If no source of bleeding is found in her upper intestinal tract, we may need to consider colonoscopy. Due to her obesity, neurologic disease, heart disease, debilitated state, she will be at increased risk of conscious sedation. We will arrange to have Anesthesia help us with regard to her sedation. /[id number]/MODL
[2017-06-15] MEDS: LEVOTHYROXINE 112 MCG TAB PO SCH (11:54)
[2017-06-15] MEDS: PARoxetine HCL 20 MG TAB PO SCH (11:54)
[2017-06-15] MEDS: DIVALPROEX NA 125 MG CAP.SPRINKLE PO SCH ×2 (11:56→21:27)
[2017-06-15] MEDS ORDERED: DICLOFENAC SODIUM 1% 100 GM GEL TP SCH (12:00)
[2017-06-15] MEDS ORDERED: FLU VACC QS 2017-18 (3YR+)/PF 0.5 ML SYR (FLUARIX QUAD) IM ONE ×2 (12:11→12:12)
[2017-06-15 12:48] LABS: COLOR YELLOW; LEUKOCYTE ESTERASE,URINE NEGATIVE (NEGATIVE); NITRITE,URINE NEGATIVE (NEGATIVE)
[2017-06-15] MEDS ORDERED: PEG 3350/NA SULF,BICARB,CL/KCL (GAVILYTE-G) 4000 ML BTL ONE (14:04)
--- NOTE | 2017-06-15 15:39 | GHP ---
[f rep st] HISTORY AND PHYSICAL DATE OF ADMISSION: 06/15/2017 Pulmonary/critical care consultation. REFERRING PROVIDER: Ana Paula Campos MD REASON FOR REFERRAL: Evaluation and management of anemia. HISTORY OF PRESENT ILLNESS: The patient is a 67-year-old woman with a history of stroke and coronary artery disease, apparently on dual anti-platelet therapy, although I do not see aspirin listed on he r medications, just Plavix and Voltaren. She is a resident at [facility] due to disability from er CVA. She was in her usual state of health when about 2-days ago she started having some rectal bl eeding and constipation, followed by nausea and fatigue. She had melena in the emergency department, which was accompanied by hypotension and tachycardia. She was admitted to the ICU and was seen by Garrison Bloom, who performed an upper GI this morning, which was unremarkable for source of bleeding. Sh terrence will start a prep for a colonoscopy this evening. The patient currently denies shortness of breath , abdominal pain, or diarrhea currently. PAST MEDICAL HISTORY: Positive for: 1. CVA. 2. Hypertension. 3. Coronary artery disease. MEDICATIONS: Include: 1. Abilify. 2. Tylenol. 3. Lipitor. 4. Plavix. 5. Voltaren. 6. Colace. 7. Synthroid. 8. Meclizine. 9. Namenda. 10. Zofran. 11. Paxil. 12. MiraLAX. 13. Potassium. 14. Zantac. 15. Senokot. 16. Maxzide. 17. Depakene. 18. Oxycodone. ALLERGIES: Morphine. SOCIAL HISTORY: The patient is a resident at [facility]. She is a former smoker. FAMILY HISTORY: Noncontributory. REVIEW OF SYSTEMS: A 10-point Review of Systems adds nothing to the History of Present Illness. PHYSICAL EXAMINATION: GENERAL: The patient is awake, alert, in no acute distress. VITAL SIGNS: Bl ood pressure is 122/78, with a heart rate of 88, she is afebrile. Oxygen saturations are 97% on 2 L. Respiratory rate is 15. HEENT: Normocephalic and atraumatic. No icterus. NECK: No JVD. Trache a is midline. CHEST: Clear to auscultation. CARDIAC: Regular rate and rhythm without murmur. ABD OMEN: Soft, nontender. Bowel sounds are present. EXTREMITIES: No clubbing, cyanosis, or edema. N EURO: The patient is somewhat groggy from the sedation related to her procedure, but is arousable an d oriented. PSYCHIATRIC: Normal mood and affect. LABORATORY DATA: Hemoglobin is 7.6, down from 9.8 at admission. Platelet count is 190. Potassium i s 3.4, down from 3.9. Glucose is 121. Lactate is 2.5, down from 4.7. A CT scan of the abdomen shows some possible mild transverse and descending colitis as well as a hiat al hernia. There is a small area of consolidation/atelectasis with possible bronchiectasis in the li ngula. Images reviewed. ASSESSMENT: 1. Anemia. This is likely due to an acute gastrointestinal bleed. The patient is hemodynamically s table, but her hemoglobin has fallen. She is receiving a unit of packed red blood cells currently. 2. Gastrointestinal bleed. Endoscopy was negative for an upper gastrointestinal source. Although s he is atypical for melena, it is possible that she has a lower source for her bleeding, so the patien t is being prepped for colonoscopy. 3. History of a cerebrovascular accident. The patient's antiplatelet agents are currently being hel d, will need to be restarted pending the colonoscopy as well as stabilization of her hemoglobin. /[id number]/MODL
[2017-06-15 15:42] LABS: HEMATOCRIT 22.4 % (38.0-47.0); HEMOGLOBIN 7.5 g/dL (12.6-16.3)
[2017-06-15 15:50] LABS: POTASSIUM 3.3 mEq/L (3.5-5.2)
[2017-06-15] MEDS ORDERED: POTASSIUM Cl (KCl) 10 MEQ/100 ML BAG IV ONE (16:24)
[2017-06-15] MEDS: NS W/ 20 KCl/L 1,000 ML IV SCH (17:01)
[2017-06-15] MEDS: ATORVASTATIN CALCIUM 40 MG TAB PO SCH (21:27)
[2017-06-15 21:28] LABS: HEMATOCRIT 21.1 % (38.0-47.0)
[2017-06-15] MEDS: CHLORHEXIDINE GLUC HIBICLENS 118 ML BTL TP SCH (21:32)
[2017-06-15 21:41] LABS: HEMOGLOBIN 6.9 g/dL (12.6-16.3)
[2017-06-16 04:31] LABS: HEMATOCRIT 23.8 % (38.0-47.0); MEAN CELL HEMOGLOBIN 30.8 pg (27.9-34.1); MEAN CELL HEMOGLOBIN CONCENTR. 33.6 g/dL (32.4-36.7); MEAN CELL VOLUME 91.5 fL (81.5-99.8); RED BLOOD CELL COUNT 2.6 10^6/uL (4.18-5.33); RED CELL DISTRIBUTION WIDTH 14.4 % (11.5-15.2)
[2017-06-16 04:52] LABS: ANION GAP 6 mEq/L (8-16); CALCIUM 7.5 mg/dL (8.5-10.4); CARBON DIOXIDE 25 mEq/l (22-31); CHLORIDE 111 mEq/L (97-110); CREATININE 0.6 mg/dL (0.6-1.0); GLOMERULAR FILTRATION RATE > 60; GLUCOSE 90 mg/dL (70-100); POTASSIUM 3.4 mEq/L (3.5-5.2); SODIUM 142 mEq/L (134-144)
[2017-06-16] MEDS: LEVOTHYROXINE 112 MCG TAB PO SCH (07:20)
--- NOTE | 2017-06-16 08:07 | HOSPPROG ---
Hospitalist Progress Note Assessment/Plan: #Acute GIB: while on dual anti-platelet -EGD with with normal esophagus. Rodriguez-Y- gastrojejunostomy muscosa normal -reviewed CT: possible colitis? -colonoscopy without obvious bleeding source. Polyps in ascending colon biopsied -Outpatient capsule study. If rebleeds here, tagged RBC scan or IR -H/H stable after 1 unit 06/15. Serial H/H today #Compensated systolic HF/h/o takasubo: (EF 25% 2016). Hold diuretic with GIB #HTN: hold anti-hypertensives with GIB #Hypothyroidism: LT4 #CVA:restart ASA, Plavix tomorrow if H/H stable. Cont statin. Wheel-chair bound. #CAD: NSTEMI in 2016. Determined for medical management then as stenting would not improve quality of life. Cont statin, restart ASA/Plavix tomorrow if H/H stable #Chronic hypoxemic resp failure: at baseline 2 L #Deconditioning: PT, wheelchair-bound #Hypokalemia: repleting #Diet: clears #Disp: cont inpt admission for serial H/H # Subjective: c/o STEVEN this morning. Objective: Vital Signs Temp Pulse Resp BP Pulse Ox 36.8 C 71 12 117/104 H 94 06/15/17 20:00 06/16/17 07:58 06/16/17 07:58 06/16/17 07:58 06/16/17 07:58 Laboratory Results 06/16/17 04:20 06/16/17 04:20 06/15/17 06/16/17 06/17/17 05:59 05:59 05:59 Intake Total 6991 2223 Output Total 3 250 Balance 5363 5717 PT 14.2 SEC (12.0-15.0) 06/15/17 00:45 INR 1.11 (0.83-1.16) 06/15/17 00:45 ICD10 Worksheet Patient Problems: Problems Problem Status Onset Gastrointestinal bleed Acute Aspiration pneumonia Acute
[2017-06-16] MEDS: POTASSIUM Cl (KCl) 100 ML IV SCH ×3 (08:27→14:41)
[2017-06-16 08:43] LABS: HEMATOCRIT 24.9 % (38.0-47.0); HEMOGLOBIN 8.4 g/dL (12.6-16.3)
[2017-06-16] MEDS: NON-FORMULARY NEW DRUG (Fluticasone/Vilanterol [Breo Ellipta 100-25 Mcg Inh] 1 EACH) IH SCH (08:49)
[2017-06-16] MEDS: NS W/ 20 KCl/L 1,000 ML IV SCH (08:53)
[2017-06-16] MEDS: PANTOPRAZOLE SODIUM 40 MG in NS 100 ML IV SCH ×2 (09:51→21:01)
[2017-06-16] MEDS: DIVALPROEX NA 125 MG CAP.SPRINKLE PO SCH ×2 (10:00→21:01)
[2017-06-16] MEDS: PARoxetine HCL 20 MG TAB PO SCH (10:00)
[2017-06-16] MEDS: CALCIUM CARBONATE 500 MG TAB PO SCH (10:00)
[2017-06-16] MEDS: CHOLECALCIFEROL VIT D3 1,000 UNITS TAB PO SCH (10:00)
[2017-06-16] MEDS ORDERED: HYDROmorphONE/DILAUDID 1 MG/ML INJ IVP PRN (10:19)
--- NOTE | 2017-06-16 11:31 | PDANEPAE ---
ANE History of Present Illness Colonoscopy ANE Past Medical History - Cardiovascular History Hx Hypertension: Yes Hx Coronary Artery / Peripheral Vascular Disease: Yes Cardiovascular History Comment: non STEMI/CVA - Pulmonary History Hx Oxygen in Use at Home: Yes O2 in Use at Home (L/minute): 2 Hx Sleep Apnea: No Sleep Apnea Screening Result - Last Documented: Positive Pulmonary History Comment: currently 100% on 2L - Neurologic History Hx Cerebrovascular Accident: Yes - Endocrine History Hx Diabetes: No ANE Review of Systems Review of Systems: - Exercise capacity Exercise capacity: limited by disability ANE Patient History - Allergies Allergies/Adverse Reactions: morphine Allergy (Verified 06/15/17 00:54) - Home Medications Home Medications: Acetaminophen [Tylenol 325mg (*)] 650 mg PO TID 11/21/15 [Last Taken 06/14/17] Atorvastatin Calcium [Lipitor 40 mg (*)] 40 mg PO HS 11/21/15 [Last Taken ] Benzocaine/Menthol 14/12 [Cepacol Lozenge] 1 each MM PRN PRN 11/21/15 [Last Taken Unknown] Cholecalciferol Vit D3 [Vitamin D3 (*)] 1,000 units PO DAILY 11/21/15 [Last Taken 06/13/17] Clopidogrel Bisulfate [Plavix (*)] 75 mg PO DAILY 11/21/15 [Last Taken 06/13/17] Diclofenac Sodium 1% [Voltaren Gel (*)] 1 gretta TP QID 11/21/15 [Last Taken ] Docusate Sodium [Colace 100 MG (*)] 100 mg PO BID 11/21/15 [Last Taken 06/14/17] Magnesium Oxide [Magnesium Oxide 400 mg (*)] 400 mg PO DAILY 11/21/15 [Last Taken 06/13/17] Meclizine HCl [Meclizine HCl 25 mg (RX,OTC)] 25 mg PO BID PRN 11/21/15 [Last Taken 06/14/17] PARoxetine HCL [Paxil 20mg (*)] 60 mg PO DAILY 11/21/15 [Last Taken 06/13/17] Polyethylene Glycol 3350 [Miralax 17 gm (*)] 17 gm PO DAILY PRN 11/21/15 [Last Taken 11/21/15 09:00] Potassium Cl [Klor-Con 20 meq (*)] 40 meq PO DAILY 11/21/15 [Last Taken 06/13/17 ] Sennosides [Senokot] 1 tab PO BID 11/21/15 [Last Taken 06/14/17] Triamterene/Hctz 37.5/25 [Maxzide-25 (*)] 1 tab PO DAILY 11/21/15 [Last Taken ] oxyCODONE IR [Oxycodone Ir (*)] 5 mg PO Q8 PRN 11/21/15 [Last Taken 06/14/17] Calcium Carbonate [Oyster Shell Calcium 500 mg (*)] 1,000 mg PO DAILY 06/15/17 [ Last Taken 06/13/17] Cetirizine [ZyrTEC 10 mg (*)] 10 mg PO DAILY PRN 06/15/17 [Last Taken Unknown] Chlorhexidine Gluconate [Hibiclens (*)] 15 ml TP BID 06/15/17 [Last Taken ] Divalproex [Depakote Sprinkle 125 MG (*)] 125 mg PO BID 06/15/17 [Last Taken ] Fluticasone/Vilanterol [Breo Ellipta 100-25 Mcg INH] 1 each IH DAILY 06/15/17 [ Last Taken 06/14/17] Hydrocodone/Acetaminophen [Gipsy 5/325 (*)] 1 each PO Q6 PRN 06/15/17 [Last Taken 06/13/17] Levothyroxine [Synthroid 112 mcg (*)] 112 mcg PO DAILY06 06/15/17 [Last Taken ] Pantoprazole Sodium [Protonix] 20 mg PO DAILY 06/15/17 [Last Taken 06/13/17] - NPO status NPO Since - Liquids (Date): 06/15/17 NPO Since - Liquids (Time): 00:00 NPO Since - Solids (Date): 06/14/17 NPO Since - Solids (Time): 09:00 - Smoking Hx Smoking Status: Former smoker - Alcohol Use Alcohol Use: None ANE Labs/Vital Signs - Labs Result Diagrams: 06/16/17 08:25 06/16/17 04:20 - Vital Signs Blood Pressure: 136/73 Heart Rate: 75 Respiratory Rate: 14 O2 Sat (%): 98 Height: 162.56 cm Weight: 96.162 kg ANE Physical Exam - Airway Neck exam: FROM Mallampati Score: Class 3 Mouth exam: poor dentition - Pulmonary Pulmonary: no respiratory distress - Cardiovascular Cardiovascular: regular rate and rhythym - ASA Status ASA Status: III ANE Anesthesia Plan Total IV Anesthesia: Yes
[2017-06-16] MEDS ORDERED: PROPOFOL/EMULSION 500 MG/50 ML BOTTLE IV ONE (11:33)
[2017-06-16] MEDS ORDERED: ONDANSETRON 4 MG/2 ML VIAL IVP PRN (11:43)
[2017-06-16] MEDS ORDERED: OXYCODONE/APAP 5/325 TAB PO PRN (11:43)
[2017-06-16] MEDS ORDERED: DEXAMETHASONE 4 MG/ML VIAL IVP PRN (11:43)
[2017-06-16] MEDS ORDERED: NALOXONE HCL 0.4 MG/ML INJ IVP PRN (11:43)
[2017-06-16] MEDS ORDERED: ACETAMINOPHEN 500 MG TAB PO PRN (11:43)
[2017-06-16] MEDS ORDERED: fentaNYL 100 MCG/2 ML INJ IVP PRN (11:43)
[2017-06-16] MEDS ORDERED: HYDROCODONE/APAP 5/325 TAB PO PRN (11:43)
--- NOTE | 2017-06-16 11:44 | POSTANESTH ---
Post Anesthetic Evaluation Cardiovascular Status: Similar to Pre-Op Cond Respiratory Status: Similar to Pre-op Cond. Level of Consciousness/Mental Status: Can Participate in Eval, Moderately Sleepy Pain Control: Adequate, Prn Tx Ordered Nausea/Vomiting Control: Adequate, Prn Tx Ordered Complications Possibly Related to Anesthesia: None Noted
--- NOTE | 2017-06-16 12:10 | SUROPNOTE ---
[facility] Operative Report - Surgery BRIEF GI/COLONOSCOPY NOTE INDICATION: melena, anemia QUALITY OF PREP: fair, small lesions may have been missed EXTENT OF EXAM: to cecum MEDICATIONS: per anesthesia COMPLICATIONS: none acutely FINDINGS: 1. multiple small sigmoid diverticuli 2. dark, non-blood, stool 3. 3 small polyps in ascending - removed with cold biopsy 4. no active bleeding or source of recent bleeding IMPRESSION/RECS: 1. GI BLEED - source is uncertain - resolved UGI process? - resolved diverticular bleed? - small bowel source? - H/H stable now - recommend outpt capsule endoscopy to eval further - can advance diet and consider dc home - ok to resume DAPT - if has more evidence of bleeding, while inpatient, may need to consider tagged cell scan and/or IR w/u - will sign off, call with questions
[2017-06-16] MEDS: CHLORHEXIDINE GLUC HIBICLENS 118 ML BTL TP SCH (12:16)
--- NOTE | 2017-06-16 12:24 | GIREPORT ---
[facility] Surgical Services - Endoscopy Department Patient Name: Norma Ramsay Procedure Date: 06/16/2017 11:38 AM Patient Type: Inpatient Attending MD/ ER Physician: Magda Bloom MD Procedure: Colonoscopy Indications: Hematochezia, Melena, Acute post hemorrhagic anemia Providers: Madga Bloom MD Medicines: Sedation Administered by an Anesthesia Professional Complications: No immediate complications. Description of Procedure: After obtaining informed consent, the scope was passed under direct vision. Throughout the proce dure, the patient's blood pressure, pulse, and oxygen saturations were monitored continuously. The Colonoscope with irrigation channel was introduced through the anus and advanced to the cecum, identified by appendiceal orifice and ileocecal valve. The colonoscopy was performed without difficulty. The patient tolerated the procedure well. The quality of the bowel preparation was adequate to identify polyps 6 mm and larger in size. The ileocecal valve, appendiceal orifice, a nd rectum were photographed. Findings: Multiple small-mouthed diverticula were found in the sigmoid colon. Three sessile polyps were found in the ascending colon. The polyps were 4 to 5 mm in size. These polyps were removed with a cold biopsy forceps. Resection and retrieval were complete. Estimated Blood Loss: Estimated blood loss: none. Post Op Diagnosis: - Diverticulosis in the sigmoid colon. - Three 4 to 5 mm polyps in the ascending colon, removed with a cold bi opsy forceps. Resected and retrieved. Recommendation: - [facility] care. - To visualize the small bowel, perform video capsule endoscopy. Will p ralph this as outpatient. - Advance diet as tolerated. - No clear source of melena and anemia. - Consider tagged cell scan if bleeding resumes. Attending Participation: I personally performed the entire procedure. ,Electronically Sigened by Magda Bloom MD> Magda Bloom MD 06/16/2017 12:24:01 PM Number of Addenda: 0 Note Initiated On: 06/16/2017 11:38 AM Total Procedure Duration Time 0 hours 32 minutes 57 seconds [email or web address]
[2017-06-16] MEDS ORDERED: POTASSIUM Cl (KCl) 100 ML IV ONE (14:45)
--- NOTE | 2017-06-16 16:59 | ASMTCMCOM ---
CM Note CM Note Notes: 67 year old female who lives at [facility] since having a CVA. Admitted to [facility] due to GIB. Has a hx of CAD, HTN, Hypothyroid, Chronic respiratory failure, W/C bound, Incontinent B & B. Patient had an upper scope (-) and today having a lower scope to determine where the bleed is originating. Patient will return to [facility] on discharge. Date Signed: 06/16/2017 04:59 PM Electronically Signed By:Audra Stringer LCSW
[2017-06-16] MEDS: oxyCODONE IR 5 MG TAB PO PRN (17:05)
--- NOTE | 2017-06-16 17:09 | PDINTPN ---
[employer] [facility] Progress Note Assessment/Plan: Assessment: Acute GI bleed: No source found with upper endoscopy or by colonoscopy today. Acute blood-loss anemia. Secondary to 1. Hematocrit stable at 25. Did receive 2 units of packed red blood cells 06/15. History of coronary artery disease: Anti-platelet agents on hold. Not reversed on admission. History of previous stroke. History of other medical problems including reactive airways disease, gastroesophageal reflux, HTN, depression, etc. Plan: Continue observation in the intensive care unit. Follow H&H. Follow for clinical bleeding. Continue to hold anti-platelet agents for now. If bleeding again become significant platelets might be indicated, and in addition she would need a tagged red cell scan. Subjective: Status post colonoscopy. Somewhat lethargic rate doing okay. Plane. No pain, no shortness of breath Objective: Vital Signs Temp Pulse Resp BP Pulse Ox 36.6 C 77 18 123/70 H 92 06/16/17 13:03 06/16/17 16:00 06/16/17 16:00 06/16/17 16:00 06/16/17 16:00 Laboratory Results 06/16/17 08:25 06/16/17 04:20 06/15/17 06/16/17 06/17/17 05:59 05:59 05:59 Intake Total 2580 6447 1300 Output Total 3 250 801 Balance 2577 6197 499 PT 14.2 SEC (12.0-15.0) 06/15/17 00:45 INR 1.11 (0.83-1.16) 06/15/17 00:45 Physical Exam - Physical Exam General Appearance: other (Sleepy, arousable, responsive) EENT: PERRL/EOMI, other (On room air) Neck: normal inspection Respiratory: lungs clear (Anteriorly), decreased breath sounds (At bases) Cardiac/Chest: regular rate, rhythm Abdomen: normal bowel sounds, non-tender, soft Skin: warm/dry, pallor Extremities: No pedal edema Neuro/Psych: no motor/sensory deficits, No cognition abnormalities ICD10 Worksheet Patient Problems: Problems Problem Status Onset Aspiration pneumonia Acute Gastrointestinal bleed Acute
[2017-06-16 18:04] LABS: HEMATOCRIT 23.7 % (38.0-47.0); HEMOGLOBIN 8.1 g/dL (12.6-16.3)
[2017-06-16 18:20] LABS: POTASSIUM 3.3 mEq/L (3.5-5.2)
[2017-06-16] MEDS: ATORVASTATIN CALCIUM 40 MG TAB PO SCH (21:01)
[2017-06-17] MEDS: CHLORHEXIDINE GLUC HIBICLENS 118 ML BTL TP SCH ×3 (00:47→19:50)
[2017-06-17] MEDS: oxyCODONE IR 5 MG TAB PO PRN ×2 (05:09→15:41)
[2017-06-17] MEDS: LEVOTHYROXINE 112 MCG TAB PO SCH (05:11)
[2017-06-17 05:20] LABS: MEAN CELL HEMOGLOBIN 31.5 pg (27.9-34.1); MEAN CELL HEMOGLOBIN CONCENTR. 34.6 g/dL (32.4-36.7); MEAN CELL VOLUME 90.9 fL (81.5-99.8); RED BLOOD CELL COUNT 2.86 10^6/uL (4.18-5.33)
[2017-06-17 05:25] LABS: ANION GAP 5 mEq/L (8-16); CALCIUM 8.5 mg/dL (8.5-10.4); CARBON DIOXIDE 26 mEq/l (22-31); CHLORIDE 107 mEq/L (97-110); CREATININE 0.5 mg/dL (0.6-1.0); GLOMERULAR FILTRATION RATE > 60; GLUCOSE 80 mg/dL (70-100); POTASSIUM 3.5 mEq/L (3.5-5.2); SODIUM 138 mEq/L (134-144)
--- NOTE | 2017-06-17 08:07 | HOSPPROG ---
Hospitalist Progress Note Assessment/Plan: #Acute GIB: while on dual anti-platelet -EGD with with normal esophagus. Rodriguez-Y- gastrojejunostomy muscosa normal -reviewed CT: possible colitis? -colonoscopy without obvious bleeding source. Polyps in ascending colon biopsied -Outpatient capsule study. If rebleeds here, tagged RBC scan or IR -H/H stable after 1 unit 06/15. Restart plavix only today and monitor H/H #Compensated systolic HF/h/o takasubo: (EF 25% 2016). Hold diuretic with GIB #HTN: hold anti-hypertensives with GIB #Hypothyroidism: LT4 #CVA:restart ASA, Plavix tomorrow if H/H stable. Cont statin. Wheel-chair bound. #CAD: NSTEMI in 2016. Determined for medical management then as stenting would not improve quality of life. Cont statin, restart Plavix only today. #Chronic hypoxemic resp failure: at baseline 2 L #Deconditioning: PT, wheelchair-bound #Hypokalemia: repleting #Diet: clears #Disp: cont inpt admission for serial H/H, ok for floor # Subjective: no abd pain. Hungry. No melena Objective: Vital Signs Temp Pulse Resp BP Pulse Ox 36.6 C 76 14 132/59 H 96 06/16/17 13:03 06/17/17 04:00 06/17/17 04:00 06/17/17 04:00 06/17/17 04:00 Laboratory Results 06/17/17 04:45 06/17/17 04:45 06/16/17 06/17/17 06/18/17 05:59 05:59 05:59 Intake Total 6447 2964 Output Total 250 1501 Balance 6197 1463 PT 14.2 SEC (12.0-15.0) 06/15/17 00:45 INR 1.11 (0.83-1.16) 06/15/17 00:45 - Physical Exam Constitutional: not in pain, chronically ill appearing Eyes: PERRL Ears, Nose, Mouth, Throat: moist mucous membranes, hearing normal Cardiovascular: regular rate and rhythym, no murmur, rub, or gallop Respiratory: no respiratory distress, no rales or rhonchi Gastrointestinal: normoactive bowel sounds, soft, non-tender abdomen Genitourinary: no bladder fullness Skin: warm Neurologic: AAOx3, CN II-XII Intact Psychiatric: interacting appropriately ICD10 Worksheet Patient Problems: Problems Problem Status Onset Gastrointestinal bleed Acute Aspiration pneumonia Acute
[2017-06-17] MEDS: NON-FORMULARY NEW DRUG (Fluticasone/Vilanterol [Breo Ellipta 100-25 Mcg Inh] 1 EACH) IH SCH (08:22)
[2017-06-17] MEDS ORDERED: ACETAMINOPHEN 325 MG TAB ONE (09:12)
[2017-06-17] MEDS: PANTOPRAZOLE SODIUM 40 MG in NS 100 ML IV SCH ×2 (09:13→20:20)
[2017-06-17] MEDS: DIVALPROEX NA 125 MG CAP.SPRINKLE PO SCH ×2 (09:14→20:21)
[2017-06-17] MEDS: CHOLECALCIFEROL VIT D3 1,000 UNITS TAB PO SCH (09:14)
[2017-06-17] MEDS: CALCIUM CARBONATE 500 MG TAB PO SCH (09:14)
[2017-06-17] MEDS: PARoxetine HCL 20 MG TAB PO SCH (09:14)
[2017-06-17] MEDS ORDERED: POTASSIUM CL 10 MEQ TAB PO ONE (09:22)
[2017-06-17] MEDS: ACETAMINOPHEN 325 MG TAB PO PRN ×2 (09:25→17:51)
[2017-06-17] MEDS: CLOPIDOGREL BISULFATE 75 MG TAB PO SCH (15:43)
[2017-06-17 16:20] LABS: HEMATOCRIT 24.6 % (38.0-47.0); HEMOGLOBIN 8.5 g/dL (12.6-16.3)
[2017-06-17] MEDS: POTASSIUM Cl (KCl) 100 ML IV SCH ×2 (20:20→21:57)
[2017-06-17] MEDS: NS W/ 20 KCl/L 1,000 ML IV SCH (20:21)
[2017-06-17] MEDS: ATORVASTATIN CALCIUM 40 MG TAB PO SCH (20:21)
[2017-06-18] MEDS: ACETAMINOPHEN 325 MG TAB PO PRN ×2 (04:33→13:43)
[2017-06-18] MEDS: oxyCODONE IR 5 MG TAB PO PRN ×2 (04:34→13:43)
[2017-06-18] MEDS: LEVOTHYROXINE 112 MCG TAB PO SCH (04:34)
[2017-06-18 04:44] LABS: HEMATOCRIT 26.4 % (38.0-47.0); HEMOGLOBIN 8.9 g/dL (12.6-16.3); MEAN CELL HEMOGLOBIN 30.8 pg (27.9-34.1); MEAN CELL HEMOGLOBIN CONCENTR. 33.7 g/dL (32.4-36.7); MEAN CELL VOLUME 91.3 fL (81.5-99.8); RED BLOOD CELL COUNT 2.89 10^6/uL (4.18-5.33); RED CELL DISTRIBUTION WIDTH 13.6 % (11.5-15.2)
[2017-06-18 04:59] LABS: ANION GAP 5 mEq/L (8-16); CALCIUM 8.5 mg/dL (8.5-10.4); CARBON DIOXIDE 27 mEq/l (22-31); CHLORIDE 108 mEq/L (97-110); CREATININE 0.6 mg/dL (0.6-1.0); GLOMERULAR FILTRATION RATE > 60; GLUCOSE 90 mg/dL (70-100); POTASSIUM 3.9 mEq/L (3.5-5.2); SODIUM 140 mEq/L (134-144)
[2017-06-18] MEDS: PARoxetine HCL 20 MG TAB PO SCH (08:03)
[2017-06-18] MEDS: CLOPIDOGREL BISULFATE 75 MG TAB PO SCH (08:03)
[2017-06-18] MEDS: CHOLECALCIFEROL VIT D3 1,000 UNITS TAB PO SCH (08:03)
[2017-06-18] MEDS: PANTOPRAZOLE SODIUM 40 MG in NS 100 ML IV SCH ×2 (08:04→20:17)
[2017-06-18] MEDS: CALCIUM CARBONATE 500 MG TAB PO SCH (08:04)
[2017-06-18] MEDS: DIVALPROEX NA 125 MG CAP.SPRINKLE PO SCH ×2 (08:04→20:17)
[2017-06-18] MEDS: CHLORHEXIDINE GLUC HIBICLENS 118 ML BTL TP SCH ×2 (08:05→20:42)
[2017-06-18] MEDS: NON-FORMULARY NEW DRUG (Fluticasone/Vilanterol [Breo Ellipta 100-25 Mcg Inh] 1 EACH) IH SCH (08:05)
--- NOTE | 2017-06-18 08:13 | HOSPPROG ---
Hospitalist Progress Note Assessment/Plan: #Acute GIB: while on dual anti-platelet -EGD with with normal esophagus. Rodriguez-Y- gastrojejunostomy muscosa normal -colonoscopy without obvious bleeding source. Polyps in ascending colon biopsied -Outpatient capsule study. If rebleeds here, tagged RBC scan or IR -H/H stable after 1 unit 06/15. Restarted only Plavix at this point. Will need to restart ASA x 1 week #Compensated systolic HF/h/o takasubo: (EF 25% 2016). Hold diuretic with GIB #HTN: hold anti-hypertensives with GIB #Hypothyroidism: LT4 #CVA:restart ASA, Plavix tomorrow if H/H stable. Cont statin. Wheel-chair bound. #CAD: NSTEMI in 2016. Determined for medical management then as stenting would not improve quality of life. Cont statin, restart Plavix only today. #Chronic hypoxemic resp failure: at baseline 2 L #Tubular adenomas: needs FU screening #Deconditioning: PT, wheelchair-bound #Hypokalemia: repleting #Diet: clears #Disp: cont inpt admission for serial H/H. If H/H stable, can # Subjective: no CP or SOB, or rectal bleeding Objective: Vital Signs Temp Pulse Resp BP Pulse Ox 36.8 C 77 16 118/68 96 06/18/17 07:52 06/18/17 07:52 06/18/17 07:52 06/18/17 07:52 06/18/17 07:52 Laboratory Results 06/18/17 04:20 06/18/17 04:20 06/17/17 06/18/17 06/19/17 05:59 05:59 05:59 Intake Total 2964 400 Output Total 1501 1125 Balance 1463 -725 PT 14.2 SEC (12.0-15.0) 06/15/17 00:45 INR 1.11 (0.83-1.16) 06/15/17 00:45 - Physical Exam Constitutional: no apparent distress Eyes: PERRL Ears, Nose, Mouth, Throat: moist mucous membranes, hearing normal Cardiovascular: regular rate and rhythym Respiratory: no respiratory distress, no rales or rhonchi Gastrointestinal: normoactive bowel sounds, soft, non-tender abdomen Genitourinary: no bladder fullness Skin: warm Neurologic: AAOx3, CN II-XII Intact ICD10 Worksheet Patient Problems: Problems Problem Status Onset Gastrointestinal bleed Acute Aspiration pneumonia Acute
[2017-06-18] MEDS ORDERED: POTASSIUM CL 10 MEQ TAB PO ONE (08:22)
--- NOTE | 2017-06-18 11:01 | ASMTCMCOM ---
CM Note CM Note Notes: Pt not ready for DC back to [facility] yet. Updated Fartun at B/M and faxed initial clinicals. C/M to follow. Date Signed: 06/18/2017 11:00 AM Electronically Signed By:Jaymie Decker LCSW
[2017-06-18] MEDS: TRIAMTERENE/HCTZ 37.5/25 1 EACH TAB PO SCH (15:32)
[2017-06-18] MEDS: ASPIRIN 81 MG CHEWABLE TAB PO SCH (16:59)
[2017-06-18] MEDS: NS W/ 20 KCl/L 1,000 ML IV SCH (17:00)
[2017-06-18] MEDS: ATORVASTATIN CALCIUM 40 MG TAB PO SCH (20:17)
[2017-06-19 05:07] LABS: HEMATOCRIT 28.7 % (38.0-47.0); HEMOGLOBIN 9.8 g/dL (12.6-16.3); MEAN CELL HEMOGLOBIN 31.5 pg (27.9-34.1); MEAN CELL HEMOGLOBIN CONCENTR. 34.1 g/dL (32.4-36.7); MEAN CELL VOLUME 92.3 fL (81.5-99.8); RED BLOOD CELL COUNT 3.11 10^6/uL (4.18-5.33); RED CELL DISTRIBUTION WIDTH 13.9 % (11.5-15.2)
[2017-06-19 05:23] LABS: POTASSIUM 4.5 mEq/L (3.5-5.2)
[2017-06-19] MEDS: LEVOTHYROXINE 112 MCG TAB PO SCH (05:24)
[2017-06-19] MEDS: ACETAMINOPHEN 325 MG TAB PO PRN ×2 (05:24→10:45)
[2017-06-19] MEDS: oxyCODONE IR 5 MG TAB PO PRN ×2 (05:24→12:51)
--- NOTE | 2017-06-19 08:26 | PDIAF ---
- Diagnosis Diagnosis: GIB Code Status: Do Not Resuscitate - Medication Management Discharge Medications: Medications to Continue on Transfer Acetaminophen [Tylenol 325mg (*)] 650 mg PO TID 11/21/15 [Last Taken 06/14/17] Atorvastatin Calcium [Lipitor 40 mg (*)] 40 mg PO HS 11/21/15 [Last Taken ] Benzocaine/Menthol 15/ [Cepacol Lozenge] 1 each MM PRN PRN 11/21/15 [Last Taken Unknown] Cholecalciferol Vit D3 [Vitamin D3 (*)] 1,000 units PO DAILY 11/21/15 [Last Taken 06/13/17] Clopidogrel Bisulfate [Plavix (*)] 75 mg PO DAILY 11/21/15 [Last Taken 06/13/17] Diclofenac Sodium 1% [Voltaren Gel (*)] 1 gretta TP QID 11/21/15 [Last Taken ] Docusate Sodium [Colace 100 MG (*)] 100 mg PO BID 11/21/15 [Last Taken 06/14/17] Magnesium Oxide [Magnesium Oxide 400 mg (*)] 400 mg PO DAILY 11/21/15 [Last Taken 06/13/17] Meclizine HCl [Meclizine HCl 25 mg (RX,OTC)] 25 mg PO BID PRN 11/21/15 [Last Taken 06/14/17] PARoxetine HCL [Paxil 20mg (*)] 60 mg PO DAILY 11/21/15 [Last Taken 06/13/17] Polyethylene Glycol 3350 [Miralax 17 gm (*)] 17 gm PO DAILY PRN 11/21/15 [Last Taken 11/21/15 09:00] Sennosides [Senokot] 1 tab PO BID 11/21/15 [Last Taken 06/14/17] Triamterene/Hctz 37.5/25 [Maxzide-25 (*)] 1 tab PO DAILY 11/21/15 [Last Taken ] Albuterol [Proventil Neb] 3 ml IH Q4 PRN #0 deyvial 11/25/15 [Last Taken Unknown ] Aspirin [Aspirin 81mg (*)] 81 mg PO DAILY #0 tab 11/25/15 [Last Taken 06/13/17] Ondansetron Odt [Zofran Odt 4 mg (*)] 4 mg PO Q4 PRN #0 tab 11/25/15 [Last Taken 06/11/17] Calcium Carbonate [Oyster Shell Calcium 500 mg (*)] 1,000 mg PO DAILY 06/15/17 [ Last Taken 06/13/17] Cetirizine [ZyrTEC 10 mg (*)] 10 mg PO DAILY PRN 06/15/17 [Last Taken Unknown] Chlorhexidine Gluconate [Hibiclens (*)] 15 ml TP BID 06/15/17 [Last Taken ] Divalproex [Depakote Sprinkle 125 MG (*)] 125 mg PO BID 06/15/17 [Last Taken ] Fluticasone/Vilanterol [Breo Ellipta 100-25 Mcg INH] 1 each IH DAILY 06/15/17 [ Last Taken 06/14/17] Hydrocodone/Acetaminophen [[place] 5/325 (*)] 1 each PO Q6 PRN 06/15/17 [Last Taken 06/13/17] Levothyroxine [Synthroid 112 mcg (*)] 112 mcg PO DAILY06 06/15/17 [Last Taken ] Pantoprazole Sodium [Protonix] 20 mg PO DAILY 06/15/17 [Last Taken 06/13/17] Discharge Medications: Refer to the Discharge Home Medication list for PRN reason. - Orders Services needed: Registered Nurse, Master [employer] Drawer Diet Recommendation: cardiac -low fat low salt Diet Texture: Regular Texture Diet Additional: Check H/H regularly since restarting ASA, Plavix. Monitor for hematochezia. - Labs/Radiology CBC Date: 06/20/17 - Follow Up Care Current Providers and Referrals: TOMEKA LLOYD [Other] - As per Instructions Magda Bloom MD [Medical Doctor] - (Surveillance for tubular adenoma. Out patient capsule study.)
[2017-06-19 08:42] VITALS: TEMP 98.3
[2017-06-19] MEDS ORDERED: PANTOPRAZOLE SODIUM 40 MG TAB PO SCH (09:00)
--- NOTE | 2017-06-19 09:00 | GDS ---
[f rep st] DISCHARGE SUMMARY DISCHARGE DIAGNOSES: 1. Acute gastrointestinal bleed. 2. Compensated systolic heart failure, history of takotsubo. 3. Hypertension. 4. Hypothyroidism. 5. History of cerebrovascular, now wheelchair bound. 6. Coronary artery disease, non ST elevation myocardial infarction in 2016. 7. Chronic hypoxemic respiratory failure. 8. Tubular adenoma. 9. Deconditioning. 10. Hypokalemia. PROCEDURES: 1. EGD 06/15/2017: Normal esophagus. Rodriguez-en-Y gastrojejunostomy anastomosis characterized by heal thy mucosa. 2. Colonoscopy 06/16/2017: Diverticulosis in sigmoid colon. Three 4-5 mm polyps in the ascending c olon. Path showed tubular adenoma. HISTORY OF PRESENT ILLNESS: A 67-year-old female with history of coronary artery disease, hypertensi on, CVA, presenting with melena. She was sent from [facility] with 1 day of melenic stools. She had mild lower abdominal pain. She is on dual anti-platelet therapy. HOSPITAL COURSE BY PROBLEM: 1. GI bleed: The patient underwent endoscopy, which showed normal esophagus. There was diverticulo sis on colonoscopy and colonoscopy demonstrated tubular adenoma. She was transfused 1 unit of blood and has remained hemodynamically stable. We restarted Plavix and aspirin with history of stroke. We will have to monitor CBC closely. Follow up with GI for outpatient capsule study. 2. Compensated systolic heart failure/history of takotsubo: EF 25% in 2016. May resume home medica tion. 3. Hypertension: Resume home medications. 4. Hypothyroidism: Levothyroxine. 5. CVA: With residual deficits and resides at [facility]. Restarted aspirin and Plavix. H and H are stable today. Recommend close monitoring. 6. Coronary disease, NSTEMI in 2016: Determine for medical management as stenting would not improve quality of life. Continue statin, Plavix and aspirin. 7. Chronic hypoxemic failure: At baseline 2 L. 8. Tubular adenoma: Follow up with GI for regular screening. 9. Deconditioning: She is wheelchair bound from history of stroke. 10. Hypokalemia: Repleted. MEDICATIONS: No new medications. FOLLOW UP: 1. GI of the [facility] for surveillance colonoscopy with tubular adenoma. 2. Outpatient capsule study. 3. CBC and monitor for gastrointestinal bleeding. /[id number]/MODL
[2017-06-19] MEDS: ASPIRIN 81 MG CHEWABLE TAB PO SCH (09:27)
[2017-06-19] MEDS: DIVALPROEX NA 125 MG CAP.SPRINKLE PO SCH (09:27)
[2017-06-19] MEDS: TRIAMTERENE/HCTZ 37.5/25 1 EACH TAB PO SCH (09:28)
[2017-06-19] MEDS: CALCIUM CARBONATE 500 MG TAB PO SCH (09:28)
[2017-06-19] MEDS: CHOLECALCIFEROL VIT D3 1,000 UNITS TAB PO SCH (09:28)
[2017-06-19] MEDS: CLOPIDOGREL BISULFATE 75 MG TAB PO SCH (09:28)
[2017-06-19] MEDS: PARoxetine HCL 20 MG TAB PO SCH (09:29)
[2017-06-19] MEDS: CHLORHEXIDINE GLUC HIBICLENS 118 ML BTL TP SCH (09:35)
[2017-06-19] MEDS: NON-FORMULARY NEW DRUG (Fluticasone/Vilanterol [Breo Ellipta 100-25 Mcg Inh] 1 EACH) IH SCH (09:36)
--- NOTE | 2017-06-19 10:51 | WOCRNPDOC ---
[facility] Advanced Assessment Note - Skin Integrity Problem, Advanced Assess Left Buttock Pressure Injury Dressing Type: Open to Air Tashia Wound Tissue: Blanching, Ecchymotic Site Measurement - Head-to-Toe Length X Width X Depth (cm): [id number] Skin Integrity Problem Comment: Wheelchair bound patient with bruising over fleshy portion of left buttock. Area is blanching but sluggish. Given that the location of this wound is not over a bony prominence it is unlikely that it is related to pressure. JESSICA Duncan reports that the patient reports spending "three hours on a bedpan" at her residence. Caution should be taken to minimize time spent on a bedpan.
[2017-06-19 12:29] VITALS: BP 133/71; PULSE 72; RESP 16; O2SAT 95
--- NOTE | 2017-06-19 14:25 | ASMTCMCOM ---
CM Note CM Note Notes: Pt ready for DC back to [facility] today. Final orders faxed. [facility] is providing stretcherat 2:30. [facility] will pay for transport. Date Signed: 06/19/2017 02:24 PM Electronically Signed By:Jaymie Decker LCSW
--- NOTE | 2017-06-19 14:26 | ASDISCHSUM ---
Discharge Information Plan Status:SNF Medically Cleared to Leave: Discharge Date: D/C Disposition:Shelter Facility [facility] D/C Disposition:Shelter Facility Projected Discharge Date:06/19/2017 11:00 AM Transportation at D/C: Discharge Delay Reason: Follow-Up Date:06/19/2017 11:00 AM Discharge Slot: Final Diagnosis:GIB Placement Information Referral Type:*Detention/SNF Referral ID:[id number] Provider Name:Herminio Hernadez/RYAN Smith Address 1:[address] [facility] Phone Number: Address 2: Fax Number: Tenzin:Herminio Selection Factors: State:[place] Patient Contact Information Contact Name:SANDRA Relationship:Other Address: Work Phone: [facility]: [facility] Phone: [facility] Code: Email: Financial Information Financial Class: Primary Plan Desc:MEDICARE INPATIENT Primary Plan Number:[id number] Secondary Plan Desc:MEDICAID [place] Secondary Plan Number:[id number] Assessment Information [facility] CM Progress Note CM Note CM Note Notes: 67 year old female who lives at [facility] since having a CVA. Admitted to [facility] due to GIB. Has a hx of CAD, HTN, Hypothyroid, Chronic respiratory failure, W/C bound, Incontinent B & B. Patient had an upper scope (-) and today having a lower scope to determine where the bleed is originating. Patient will return to [facility] on discharge. Date Signed: 06/16/2017 04:59 PM Electronically Signed By:Audra Stringer LCSW [facility] CM Progress Note CM Note CM Note Notes: Pt not ready for DC back to [facility] yet. Updated Fartun at B/M and faxed initial clinicals. C/M to follow. Date Signed: 06/18/2017 11:00 AM Electronically Signed By:Jaymie Decker LCSW [facility] CM Progress Note CM Note CM Note Notes: Pt ready for DC back to [facility] today. Final orders faxed. [facility] is providing stretcherat 2:30. [facility] will pay for transport. Date Signed: 06/19/2017 02:24 PM Electronically Signed By:Jaymie Decker LCSW Intervention Information Intervention Type:*IM-Signed Date of Service:06/19/2017 10:10 AM Patient Type:Inpatient Staff Member:Whitney Velásquez Hours: Discipline: Severity: Comment:
== END 2017-06-19 14:34 | DRG 378 ==
LOC: EDUNIT# → F2N 02:24 → F1N 06-17 16:54
PROVIDERS: ADMIT Student in an Organized Health Care Education/Training Program; ATTEND Student in an Organized Health Care Education/Training Program
PROC: 0DJ08ZZ Inspection of Upper Intestinal Tract, Via Natural or Artificial Opening Endoscopic (ICD-10-PCS; 2017-06-15)
PROC: 30233N1 Transfusion of Nonautologous Red Blood Cells into Peripheral Vein, Percutaneous Approach (ICD-10-PCS; 2017-06-15)
PROC: 0DBK8ZX Excision of Ascending Colon, Via Natural or Artificial Opening Endoscopic, Diagnostic (ICD-10-PCS; principal; 2017-06-16 11:30)
DX: K92.2 Gastrointestinal hemorrhage, unspecified (principal); D62 Acute posthemorrhagic anemia; J96.11 Chronic respiratory failure with hypoxia; I11.0 Hypertensive heart disease with heart failure; I50.20 Unspecified systolic (congestive) heart failure; D12.2 Benign neoplasm of ascending colon; K57.30 Diverticulosis of large intestine without perforation or abscess without bleeding; E03.9 Hypothyroidism, unspecified; I25.10 Atherosclerotic heart disease of native coronary artery without angina pectoris; I25.2 Old myocardial infarction; E87.6 Hypokalemia; Z87.891 Personal history of nicotine dependence; Z23 Encounter for immunization; Z86.73 Personal history of transient ischemic attack (TIA), and cerebral infarction without residual deficits; Z99.3 Dependence on wheelchair
CPT/HCPCS: 97162-GP; G0008; G8978-GP-CJ; G8979-GP-CJ; G8980-GP-CJ; J1170; J2001; J2704; P9016; Q9967